=== PATIENT | male | born 1955 | race Caucasian/White ===

== ENCOUNTER 2016-08-11 09:45 | Outpatient (RCR) | payer MEDICARE, MEDICAID ==
[~2016-08-11 09:45] MED LIST: ABILIFY; ABILIFY 15MG TA15 MG PO; ABILIFY DISCMEL10 M1; ABILIFY30 MG PO; ACID REFLUX; ACYCLOVIR200 MG PO; ADIPEX-P37.5 MG PO; AMBIEN 10MG10 MG PO; AMBIEN10 MG PO; AMITRIPTYLINE H25 M1 PO; AMITRIPTYLINE25 MG PO; ANDRODERM2.5 MG/24 TD; ASPIRIN 32325 MG/TAB PO; ASTHMACORT; ATIVAN 0.50.5 MG/TAB PO; ATIVAN2 MG PO; BUDEPRION XL150 MG PO; CELEXA 20MG20 MG/TAB PO; CELEXA40 MG PO; CEPHALEXIN500 M1 PO; CIPRO 500MG TA500 MG PO; CLINDAMYCIN300 MG PO; CLOTRIMAZOLE1% TP; COLCHICINE0.6 MG PO; CYMBALTA; CYMBALTA60 M1 PO; DESYREL 100MG100 MG PO; DESYREL DIVIDO150 M1 PO; DOXYCYCLINE 10100 MG PO; EPA1000 MG PO; FASTIN30 MG PO; FENTANYL 100MCG TOP; FLOMAX 0.40.4 MG/CAP PO; FUROSEMIDE; GABAPENTIN600 MG PO; GLUCOPHAGE1000 MG PO; GRALISE600 MG PO; HTN; HYDROCHLOR50 MG PO; HYDROCODONE/APAP; HYDROCORTISON28.4 GM TP; K-DUR 2020 MEQ PO; LASIX 20MG TABL20 MG PO; LASIX 80MG TABL80 MG PO; LASIX20 MG PO; LEVAQUIN 5500 MG/TA1 PO; LEVEMIR FLEX100 U/ML SQ; LEVEMIR FLEXPEN SC; LEVEMIR FLEXPEN SQ; LEVEMIR SC; LORTAB 5/500 501 TAB PO; METFORMIN500 MG PO; MS CONTIN 115 MG/TAB PO; NEURONTIN100 MG/CAP PO; NEXIUM 40MG40 MG PO; NEXIUM40 MG PO; NITROSTAT0.4 MG/TAB SL; NORCO 325 MG-51 TAB PO; PERCOCET 325 MG1 TA2 PO; PHENTERMINE15 MG; POTASSIUM CL 220 MEQ PO; PREDNISONE20 MG PO; PRILOSEC 20MG20 MG PO; PRINIVIL10 MG PO; PROAIR HFA0.09 MG/AC IH; ROXICODONE 55 MG/TAB PO; ROXICODONE15 MG PO; SINGULAIR; SINGULAIR 110 MG/TAB PO; THEO-24 30300 MG/CAP PO; TRAZADONE HYDR100 MG PO; TYLENOL 325MG325 MG PO; UNABLE; VIBRANT; VICODIN 5/5001 UDTAB PO; VIIBRYD20 MG PO; VITAMIN D31000 I1 PO; WELLBUTRIN PO; WELLBUTRIN XL150 MG PO; ZAROXOLYN 2.52.5 MG PO; ZESTRIL 5MG5 MG PO; ZITHROMAX Z PA250 MG PO; ZOCOR 20MG20 MG PO; ZOCOR20 MG PO; ZYLOPRIM 300MG300 MG PO; [UNRECOGNIZED DRUG - REMARK]; [UNRECOGNIZED DRUG - REMARK]
[2017-02-23] MEDS ORDERED: TOPAMAX50 MG PO (17:46)
[2017-04-13] MEDS ORDERED: ADIPEX-P37.5 MG PO (13:20)
== END 2016-08-15 | disposition still patient (30) ==
LOC: WSPT
DX: M54.5 Low back pain (principal); G89.29 Other chronic pain
CPT/HCPCS: G8978-GP; G8979-GP

== ENCOUNTER 2016-08-28 10:09 | Emergency (ER) | payer MEDICARE, MEDICAID ==
[~2016-08-28] VITALS: Ht 185.4 cm; Wt 144.1 kg
[2016-08-28 10:11] VITALS: BP 135/71; PULSE 86; TEMP 97.6
[2016-08-28] MEDS ORDERED: NORCO 325 MG-51 TAB PO (11:50)
[2017-02-23] MEDS ORDERED: TOPAMAX50 MG PO (17:46)
[2017-04-13] MEDS ORDERED: ADIPEX-P37.5 MG PO (13:20)
== END 2016-08-28 12:03 | disposition home or self-care (01) ==
LOC: COL.ER 10:09
DX: S63.501A Unspecified sprain of right wrist, initial encounter (principal); S60.444A External constriction of right ring finger, initial encounter; W49.04XA Ring or other jewelry causing external constriction, initial encounter; X50.1XXA Overexertion from prolonged static or awkward postures, initial encounter; Z79.4 Long term (current) use of insulin; E11.22 Type 2 diabetes mellitus with diabetic chronic kidney disease; I12.9 Hypertensive chronic kidney disease with stage 1 through stage 4 chronic kidney disease, or unspecified chronic kidney disease; N18.9 Chronic kidney disease, unspecified

== ENCOUNTER 2016-09-06 09:45 | Outpatient (RCR) | payer MEDICARE, MEDICAID ==
[2017-02-23] MEDS ORDERED: TOPAMAX50 MG PO (17:46)
[2017-04-13] MEDS ORDERED: ADIPEX-P37.5 MG PO (13:20)
== END 2016-09-09 08:32 | disposition home or self-care (01) ==
LOC: WSPT 09:45
DX: M54.5 Low back pain (principal); G89.29 Other chronic pain; M79.604 Pain in right leg; M79.605 Pain in left leg
CPT/HCPCS: G8978-GP; G8979-GP; G8980-GP

== ENCOUNTER → 2016-09-29 | Outpatient (CLI) | payer MEDICARE, MEDICAID ==
[~2016-09-29] VITALS: Ht 185.4 cm; Wt 144.7 kg
[~2016-09-29] MED LIST changes: +AMITRIPTYLINE H10 M1 PO; +ATARAX50 MG PO; +DAZIDOX10 MG PO; +LEVEMIR100 U/ML SQ; +MIRALAX PA17 GM/Dose PO; +MIRALAX119G PO; +SENOKOT8.6 MG PO; +TOPAMAX50 MG PO
[2016-09-29 09:08] VITALS: BP 143/73; PULSE 60
[2016-09-29 09:32] VITALS: BP 143/73; PULSE 60
== END ==
LOC: LIGHT 09:05
DX: E88.81 Metabolic syndrome and other insulin resistance (principal); E11.9 Type 2 diabetes mellitus without complications; I10 Essential (primary) hypertension; E66.01 Morbid (severe) obesity due to excess calories; Z68.41 Body mass index [BMI] 40.0-44.9, adult

== ENCOUNTER 2016-11-01 08:30 | Outpatient (RCR) | payer MEDICARE, MEDICAID ==
[~2016-11-01 08:30] MED LIST changes: -AMITRIPTYLINE H10 M1 PO; -ATARAX50 MG PO; -DAZIDOX10 MG PO; -LEVEMIR100 U/ML SQ; -MIRALAX PA17 GM/Dose PO; -MIRALAX119G PO; -SENOKOT8.6 MG PO; -TOPAMAX50 MG PO
[2017-02-23] MEDS ORDERED: TOPAMAX50 MG PO (17:46)
[2017-04-13] MEDS ORDERED: ADIPEX-P37.5 MG PO (13:20)
== END 2016-11-18 10:33 | disposition home or self-care (01) ==
LOC: WSPT 08:30
DX: M75.112 Incomplete rotator cuff tear or rupture of left shoulder, not specified as traumatic (principal); M75.111 Incomplete rotator cuff tear or rupture of right shoulder, not specified as traumatic
CPT/HCPCS: G8987-GP; G8988-GP; G8989-GP

== ENCOUNTER → 2016-11-03 | Outpatient (CLI) | payer MEDICARE, MEDICAID ==
[~2016-11-03] VITALS: Ht 185.4 cm; Wt 142.0 kg
[~2016-11-03] MED LIST changes: +AMITRIPTYLINE H10 M1 PO; +ATARAX50 MG PO; +DAZIDOX10 MG PO; +LEVEMIR100 U/ML SQ; +MIRALAX PA17 GM/Dose PO; +MIRALAX119G PO; +SENOKOT8.6 MG PO; +TOPAMAX50 MG PO
[2016-11-03 09:16] VITALS: BP 116/62; PULSE 68
== END ==
LOC: LIGHT 09:15
DX: E88.81 Metabolic syndrome and other insulin resistance (principal); E11.9 Type 2 diabetes mellitus without complications; E66.01 Morbid (severe) obesity due to excess calories; Z68.41 Body mass index [BMI] 40.0-44.9, adult; I10 Essential (primary) hypertension; Z98.84 Bariatric surgery status

== ENCOUNTER 2016-12-22 12:38 | Inpatient (IN) | payer MEDICARE, MEDICAID ==
[~2016-12-22] VITALS: Ht 182.9 cm; Wt 141.0 kg
[~2016-12-22 12:38] MED LIST changes: -AMITRIPTYLINE H10 M1 PO; -ATARAX50 MG PO; -DAZIDOX10 MG PO; -LEVEMIR100 U/ML SQ; -MIRALAX PA17 GM/Dose PO; -MIRALAX119G PO; -SENOKOT8.6 MG PO; -TOPAMAX50 MG PO
[2016-12-22] MEDS ORDERED: TOPAMAX50 MG PO (14:15)
[2017-01-23] MEDS ORDERED: LEVEMIR100 U/ML SQ (13:38)
[2017-01-23] MEDS ORDERED: ROXICODONE15 MG PO (13:41)
[2017-02-13] VITALS (11 sets, daily range): BP systolic 104–148; BP diastolic 47–79; PULSE 51–73; TEMP 97.6–98.3
[2017-02-13] MEDS ORDERED: MIRALAX PA17 GM/Dose PO (06:17)
[2017-02-13] MEDS ORDERED: ATARAX50 MG PO (06:28)
[2017-02-13] MEDS ORDERED: ABILIFY30 MG PO (06:38)
[2017-02-13] MEDS ORDERED: ABILIFY 15MG TA15 MG PO (06:38)
[2017-02-14] VITALS (7 sets, daily range): BP systolic 113–166; BP diastolic 57–64; PULSE 20–82; TEMP 97.5–99.3
[2017-02-14 06:41] LABS: HEMATOCRIT 34.3 % (42.0-52.0); HEMOGLOBIN 11.1 g/dl (13.5-18.0)
[2017-02-15 03:51] VITALS: BP 146/66; PULSE 88; TEMP 98.2
[2017-02-15 06:55] LABS: HEMATOCRIT 34.2 % (42.0-52.0); HEMOGLOBIN 11.5 g/dl (13.5-18.0)
[2017-02-15 07:41] VITALS: BP 158/69; PULSE 84; TEMP 98.3
[2017-02-15 15:59] VITALS: BP 150/62; PULSE 86; TEMP 98.2
[2017-02-15 20:00] VITALS: BP 99/85; PULSE 110; TEMP 98.4
[2017-02-16 00:51] VITALS: BP 162/82; PULSE 87; TEMP 98.2
[2017-02-16 05:07] VITALS: BP 125/74; PULSE 88; TEMP 98.9
[2017-02-16 07:51] VITALS: BP 152/72; PULSE 93; TEMP 97.5
[2017-02-16 12:01] VITALS: BP 143/60; PULSE 76; TEMP 98.6
[2017-02-23] MEDS ORDERED: TOPAMAX50 MG PO (17:46)
[2017-04-13] MEDS ORDERED: ADIPEX-P37.5 MG PO (13:20)
== END 2017-02-16 14:30 | disposition home or self-care (01) | DRG 470 ==
LOC: JCC 02-13 05:04
PROVIDERS: Orthopaedic Surgery
PROC: 0SRC0J9 Replacement of Right Knee Joint with Synthetic Substitute, Cemented, Open Approach (ICD-10-PCS; principal; 2017-02-13 07:30)
DX: M17.11 Unilateral primary osteoarthritis, right knee (principal); I10 Essential (primary) hypertension; E11.42 Type 2 diabetes mellitus with diabetic polyneuropathy; Z79.4 Long term (current) use of insulin; J45.909 Unspecified asthma, uncomplicated; Z87.891 Personal history of nicotine dependence
CPT/HCPCS: A9284; C1713; C1776; J0171; J0690; J1100; J1815; J2250; J2270; J2274; J2405; J2704; J2765; J3010; J7030; J7120

== ENCOUNTER → 2016-12-22 | Outpatient (CLI) | payer MEDICARE, MEDICAID ==
[~2016-12-22] VITALS: Ht 185.4 cm; Wt 145.4 kg
[2016-12-22 09:21] VITALS: BP 130/65; PULSE 74
== END ==
LOC: LIGHT
DX: E88.81 Metabolic syndrome and other insulin resistance (principal); E11.9 Type 2 diabetes mellitus without complications; E66.01 Morbid (severe) obesity due to excess calories; Z68.41 Body mass index [BMI] 40.0-44.9, adult; Z71.3 Dietary counseling and surveillance; I10 Essential (primary) hypertension

== ENCOUNTER 2017-02-10 07:54 | Outpatient (RCR) | payer MEDICARE, MEDICAID ==
[~2017-02-10 07:54] MED LIST changes: +LEVEMIR100 U/ML SQ; +TOPAMAX50 MG PO
[2017-02-23] MEDS ORDERED: TOPAMAX50 MG PO (17:46)
[2017-04-13] MEDS ORDERED: ADIPEX-P37.5 MG PO (13:20)
== END 2017-02-10 12:14 | disposition still patient (30) ==
LOC: WSPT 07:54
DX: Z01.818 Encounter for other preprocedural examination (principal); M25.861 Other specified joint disorders, right knee
CPT/HCPCS: G8978-GP; G8979-GP; G8980-GP

== ENCOUNTER 2017-02-19 08:07 | Emergency (ER) | payer MEDICARE, MEDICAID ==
[~2017-02-19] VITALS: Ht 182.9 cm; Wt 143.2 kg
[~2017-02-19 08:07] MED LIST changes: +ATARAX50 MG PO; +MIRALAX PA17 GM/Dose PO
[2017-02-19 08:13] VITALS: BP 116/58; TEMP 98.5
[2017-02-19 09:44] VITALS: PULSE 81
[2017-02-23] MEDS ORDERED: TOPAMAX50 MG PO (17:46)
[2017-04-13] MEDS ORDERED: ADIPEX-P37.5 MG PO (13:20)
== END 2017-02-19 09:44 | disposition home or self-care (01) ==
LOC: COL.ER 08:07
DX: Z48.01 Encounter for change or removal of surgical wound dressing (principal); Z96.651 Presence of right artificial knee joint; E11.22 Type 2 diabetes mellitus with diabetic chronic kidney disease; I12.9 Hypertensive chronic kidney disease with stage 1 through stage 4 chronic kidney disease, or unspecified chronic kidney disease; N18.9 Chronic kidney disease, unspecified; Z79.4 Long term (current) use of insulin
CPT/HCPCS: J1170

== ENCOUNTER 2017-04-03 17:38 | Emergency (ER) | payer MEDICARE, MEDICAID ==
[~2017-04-03] VITALS: Ht 182.9 cm; Wt 145.9 kg
[2017-04-03 17:40] VITALS: TEMP 98.5
[2017-04-03] MEDS ORDERED: DAZIDOX10 MG PO (18:03)
[2017-04-03] MEDS ORDERED: AMITRIPTYLINE H10 M1 PO (18:16)
[2017-04-03 18:36] LABS: BASO # 0.1 (0.0-0.2); BASO % 1.7 % (0.0-2.0); EOS # 0.3 (0.0-0.7); EOS % 3.9 % (0-4.0); GRAN # 4.3 (1.4-6.5); GRAN % 52.6 % (42.2-75.2); LYMPH # 2.6 (1.2-3.4); LYMPH % 31.1 % (20.0-51.0); MEAN CELL VOLUME 92 fl (80.0-100.0); MEAN CORPUSCULAR HGB CONC 32 g/dl (33.0-37.0); MEAN PLATELET VOLUME 8.8 fl (7.4-10.4); MONO # 0.8 (0.1-0.6); MONO % 10.2 % (1.7-9.3); PLATELET COUNT 352 K/mm3 (130-400); RED BLOOD COUNT 3.89 M/mm3 (4.20-5.60); REDCELL DISTRIBUTION WIDTH-CV 13.5 % (11.5-14.5); WHITE BLOOD COUNT 8.2 K/mm3 (4.8-10.8)
[2017-04-03 18:37] LABS: HEMATOCRIT 35.9 % (42.0-52.0); HEMOGLOBIN 11.5 g/dl (13.5-18.0); MEAN CORPUSCULAR HEMOGLOBIN 30 pg (27.0-31.0)
[2017-04-03 18:50] LABS: ADJUSTED CALCIUM 9.2 mg/dL (8.4-10.2); ALBUMIN 3.9 gm/dL (3.5-5.0); BILIRUBIN,TOTAL 0.6 mg/dL (0.0-1.0); CALCIUM 9.1 mg/dL (8.4-10.2); CREATININE, serum 1.04 mg/dL (0.66-1.25); POTASSIUM 3.3 mmol/L (3.4-5.0)
[2017-04-03 20:12] LABS: PH 6 (5-8); SQUAMOUS EPITHELIAL None Seen /hpf; URINE APPEARANCE Clear; URINE BACTERIA None Seen /hpf; URINE BILIRUBIN Negative (NEGATIVE); URINE BLOOD Negative (NEGATIVE); URINE COLOR Straw; URINE GLUCOSE Negative (NEGATIVE); URINE KETONE Negative (NEGATIVE); URINE RBC 0-2 /hpf; URINE UROBILINOGEN Negative (NEGATIVE); URINE WBC 0-2 /hpf
[2017-04-03] MEDS ORDERED: SENOKOT8.6 MG PO (21:04)
[2017-04-03] MEDS ORDERED: MIRALAX119G PO (21:04)
[2017-04-03 21:10] VITALS: BP 149/69; PULSE 70
[2017-04-13] MEDS ORDERED: ADIPEX-P37.5 MG PO (13:20)
== END 2017-04-03 21:11 | disposition home or self-care (01) ==
LOC: COL.ER 17:38
PROVIDERS: Emergency Medicine
DX: R10.31 Right lower quadrant pain (principal); E11.9 Type 2 diabetes mellitus without complications; K21.9 Gastro-esophageal reflux disease without esophagitis; Z90.49 Acquired absence of other specified parts of digestive tract; Z98.890 Other specified postprocedural states; Z98.84 Bariatric surgery status; Z79.82 Long term (current) use of aspirin
CPT/HCPCS: J2270; Q9967

== ENCOUNTER → 2017-04-13 | Outpatient (CLI) | payer MEDICARE, MEDICAID ==
[~2017-04-13] VITALS: Ht 182.9 cm; Wt 145.8 kg
[~2017-04-13] MED LIST changes: +AMITRIPTYLINE H10 M1 PO; +DAZIDOX10 MG PO; +MIRALAX119G PO; +SENOKOT8.6 MG PO
[2017-04-13 13:08] VITALS: BP 106/70; PULSE 68
== END ==
LOC: LIGHT 01-26 11:53
DX: E88.81 Metabolic syndrome and other insulin resistance (principal); E11.9 Type 2 diabetes mellitus without complications; E66.01 Morbid (severe) obesity due to excess calories; Z68.41 Body mass index [BMI] 40.0-44.9, adult; Z71.3 Dietary counseling and surveillance; I10 Essential (primary) hypertension

== ENCOUNTER 2017-04-17 09:45 | Outpatient (RCR) | payer MEDICARE, MEDICAID | END 2017-04-19 08:17 | LOC: WSPT 09:45 | DX: M25.561 Pain in right knee (principal); Z96.651 Presence of right artificial knee joint | CPT/HCPCS: G8978-GP; G8979-GP; G8980-GP ==

== ENCOUNTER → 2017-05-18 | Outpatient (CLI) | payer MEDICARE, MEDICAID ==
[~2017-05-18] VITALS: Ht 182.9 cm; Wt 139.3 kg
[2017-05-18 08:46] VITALS: BP 134/66; PULSE 88
== END ==
LOC: LIGHT 08:40
DX: E88.81 Metabolic syndrome and other insulin resistance (principal); E11.9 Type 2 diabetes mellitus without complications; E66.01 Morbid (severe) obesity due to excess calories; Z68.41 Body mass index [BMI] 40.0-44.9, adult; Z71.3 Dietary counseling and surveillance; I10 Essential (primary) hypertension

== ENCOUNTER → 2017-06-22 | Outpatient (CLI) | payer MEDICARE, MEDICAID ==
[~2017-06-22] VITALS: Ht 182.9 cm; Wt 140.6 kg
[2017-06-22 10:16] VITALS: BP 110/62; PULSE 64
== END ==
LOC: LIGHT 10:08
DX: E88.81 Metabolic syndrome and other insulin resistance (principal); E11.9 Type 2 diabetes mellitus without complications; E66.01 Morbid (severe) obesity due to excess calories; Z68.41 Body mass index [BMI] 40.0-44.9, adult; Z71.3 Dietary counseling and surveillance; I10 Essential (primary) hypertension

== ENCOUNTER → 2017-08-17 | Outpatient (CLI) | payer MEDICARE, MEDICAID ==
[~2017-08-17] VITALS: Ht 182.9 cm; Wt 141.5 kg
[2017-08-17 09:05] VITALS: BP 120/70; PULSE 60
== END ==
LOC: LIGHT 08:57
DX: E88.81 Metabolic syndrome and other insulin resistance (principal); E11.9 Type 2 diabetes mellitus without complications; E66.01 Morbid (severe) obesity due to excess calories; Z68.41 Body mass index [BMI] 40.0-44.9, adult; Z71.3 Dietary counseling and surveillance; I10 Essential (primary) hypertension
CPT/HCPCS: G0463

== ENCOUNTER 2017-08-28 07:59 | Outpatient (CLI) | payer MEDICARE, MEDICAID ==
[~2017-08-28] VITALS: Ht 182.9 cm; Wt 137.6 kg
[2017-08-28 08:34] VITALS: BP 124/81; PULSE 76
[2017-08-28 09:45] VITALS: BP 128/72; PULSE 62
[2017-08-28 09:55] VITALS: BP 128/72; PULSE 66
[2017-08-28 10:10] VITALS: BP 116/69; PULSE 72
[2017-08-28 10:25] VITALS: BP 108/58; PULSE 97
[2017-08-28 10:40] VITALS: BP 115/67; PULSE 98; TEMP 96.7
== END 2017-08-28 11:08 | disposition home or self-care (01) ==
LOC: COL.RAD 07:59
DX: M47.817 Spondylosis without myelopathy or radiculopathy, lumbosacral region (principal); M48.07 Spinal stenosis, lumbosacral region; Z98.890 Other specified postprocedural states
CPT/HCPCS: Q9965

== ENCOUNTER → 2017-10-19 | Outpatient (CLI) | payer MEDICARE, MEDICAID ==
[~2017-10-19] VITALS: Ht 182.9 cm; Wt 143.8 kg
[~2017-10-19] MED LIST changes: +FLEXERIL 1010 MG/TAB PO
[2017-10-19 09:17] VITALS: BP 118/76; PULSE 68
== END ==
LOC: LIGHT 09:03
DX: E88.81 Metabolic syndrome and other insulin resistance (principal); E11.9 Type 2 diabetes mellitus without complications; E66.01 Morbid (severe) obesity due to excess calories; Z68.41 Body mass index [BMI] 40.0-44.9, adult; Z71.3 Dietary counseling and surveillance; I10 Essential (primary) hypertension
CPT/HCPCS: G0463

== ENCOUNTER → 2017-12-21 | Outpatient (CLI) | payer MEDICARE, MEDICAID ==
[~2017-12-21] VITALS: Ht 182.9 cm; Wt 143.3 kg
[~2017-12-21] MED LIST changes: +MELATONIN5 M1 SL
[2017-12-21 09:31] VITALS: BP 112/70; PULSE 68
[2017-12-21 09:38] VITALS: BP 112/70; PULSE 68
== END ==
LOC: LIGHT 09:08
DX: E88.81 Metabolic syndrome and other insulin resistance (principal); E11.9 Type 2 diabetes mellitus without complications; E66.01 Morbid (severe) obesity due to excess calories; Z68.41 Body mass index [BMI] 40.0-44.9, adult; Z71.3 Dietary counseling and surveillance; I10 Essential (primary) hypertension
CPT/HCPCS: G0463

== ENCOUNTER 2018-01-22 13:00 | Outpatient (RCR) | payer OTHER, MEDICAID | END 2018-02-05 08:27 | disposition home or self-care (01) | LOC: WSPT 13:00 | DX: M75.02 Adhesive capsulitis of left shoulder (principal); M75.42 Impingement syndrome of left shoulder | CPT/HCPCS: G8984-GP; G8985-GP ==

== ENCOUNTER → 2018-01-25 | Outpatient (CLI) | payer OTHER, MEDICAID ==
[~2018-01-25] VITALS: Ht 182.9 cm; Wt 142.4 kg
[2018-01-25 09:54] VITALS: BP 106/78; PULSE 68
== END ==
LOC: LIGHT 09:40
DX: E88.81 Metabolic syndrome and other insulin resistance (principal); E11.9 Type 2 diabetes mellitus without complications; E66.01 Morbid (severe) obesity due to excess calories; Z68.41 Body mass index [BMI] 40.0-44.9, adult; Z71.3 Dietary counseling and surveillance; I10 Essential (primary) hypertension
CPT/HCPCS: G0463

== ENCOUNTER → 2018-03-08 | Outpatient (CLI) | payer MEDICAID, MEDICARE ==
[~2018-03-08] VITALS: Ht 182.9 cm; Wt 145.1 kg
[~2018-03-08] MED LIST changes: +LUNESTA2 MG PO
[2018-03-08 09:24] VITALS: BP 124/72; PULSE 80
== END ==
LOC: LIGHT 08:54
DX: E88.81 Metabolic syndrome and other insulin resistance (principal); E11.9 Type 2 diabetes mellitus without complications; I10 Essential (primary) hypertension; E66.01 Morbid (severe) obesity due to excess calories; Z68.41 Body mass index [BMI] 40.0-44.9, adult; Z71.3 Dietary counseling and surveillance
CPT/HCPCS: G0463

== ENCOUNTER 2018-05-03 16:45 | Emergency (ER) | payer MEDICARE, MEDICAID ==
[~2018-05-03] VITALS: Ht 182.9 cm; Wt 143.2 kg
[2018-05-03 16:49] VITALS: TEMP 97.9
[2018-05-03 19:09] LABS: BASO # 0.1 (0.0-0.2); BASO % 1.3 % (0.0-2.0); EOS # 0.2 (0.0-0.7); EOS % 2.5 % (0-4.0); GRAN # 4.3 (1.4-6.5); GRAN % 59.4 % (42.2-75.2); LYMPH % 27.3 % (20.0-51.0); MEAN CELL VOLUME 89 fl (80.0-100.0); MEAN CORPUSCULAR HEMOGLOBIN 29 pg (27.0-31.0); MEAN CORPUSCULAR HGB CONC 33 g/dl (33.0-37.0); MEAN PLATELET VOLUME 8.6 fl (7.4-10.4); MONO # 0.7 (0.1-0.6); MONO % 9.2 % (1.7-9.3); PLATELET COUNT 359 K/mm3 (130-400); RED BLOOD COUNT 3.74 M/mm3 (4.20-5.60); REDCELL DISTRIBUTION WIDTH-CV 13.7 % (11.5-14.5)
[2018-05-03 19:14] LABS: HEMATOCRIT 33.1 % (42.0-52.0)
[2018-05-03 19:15] LABS: ALBUMIN 3.7 gm/dL (3.5-5.0); BILIRUBIN,TOTAL 0.2 mg/dL (0.0-1.0); C-REACTIVE PROTEIN 4.5 mg/dL (0.0-0.9); CALCIUM 8.6 mg/dL (8.4-10.2); CREATININE, serum 1.14 mg/dL (0.66-1.25); POTASSIUM 3.5 mmol/L (3.4-5.0); TOTAL PROTEIN 7.9 gm/dL (6.4-8.2)
[2018-05-03] MEDS ORDERED: CIPRO 500MG TA500 MG PO (20:11)
[2018-05-03] MEDS ORDERED: CLEOCIN HCL300 MG PO (20:11)
[2018-05-03 20:24] VITALS: BP 117/77; PULSE 60
== END 2018-05-03 20:24 | disposition home or self-care (01) ==
LOC: COL.ER 16:45
PROVIDERS: Physician Assistant
DX: L03.116 Cellulitis of left lower limb (principal); L03.115 Cellulitis of right lower limb; E11.9 Type 2 diabetes mellitus without complications; Z98.890 Other specified postprocedural states; Z79.82 Long term (current) use of aspirin

== ENCOUNTER → 2018-05-10 | Outpatient (CLI) | payer MEDICAID ==
[~2018-05-10] VITALS: Ht 182.9 cm; Wt 137.0 kg
[~2018-05-10] MED LIST changes: +CLEOCIN HCL300 MG PO; +PLETAL50 MG PO; +PROSCAR 5MG5 MG PO
[2018-05-10 08:51] VITALS: BP 130/70; PULSE 80
== END ==
LOC: LIGHT 08:41
DX: E88.81 Metabolic syndrome and other insulin resistance (principal); I10 Essential (primary) hypertension; E11.9 Type 2 diabetes mellitus without complications; E66.01 Morbid (severe) obesity due to excess calories; Z68.41 Body mass index [BMI] 40.0-44.9, adult; Z71.3 Dietary counseling and surveillance
CPT/HCPCS: G0463

== ENCOUNTER 2018-06-10 01:32 | Emergency (ER) | payer MEDICARE, MEDICAID ==
[2018-06-10 02:09] LABS: BASO # 0.1 (0.0-0.2); BASO % 0.8 % (0.0-2.0); EOS # 0.2 (0.0-0.7); EOS % 3.3 % (0-4.0); GRAN # 4.2 (1.4-6.5); GRAN % 57.7 % (42.2-75.2); HEMATOCRIT 37.2 % (42.0-52.0); HEMOGLOBIN 12.1 g/dl (13.5-18.0); LYMPH % 27.7 % (20.0-51.0); MEAN CELL VOLUME 91 fl (80.0-100.0); MEAN CORPUSCULAR HEMOGLOBIN 30 pg (27.0-31.0); MEAN CORPUSCULAR HGB CONC 33 g/dl (33.0-37.0); MEAN PLATELET VOLUME 8.8 fl (7.4-10.4); MONO # 0.7 (0.1-0.6); MONO % 10.2 % (1.7-9.3); PLATELET COUNT 282 K/mm3 (130-400); RED BLOOD COUNT 4.09 M/mm3 (4.20-5.60); REDCELL DISTRIBUTION WIDTH-CV 14.1 % (11.5-14.5)
[2018-06-10 02:19] LABS: ALANINE AMINOTRANSFERASE 22 U/L (21-72); ALKALINE PHOSPHATASE 169 U/L (50-136); ANION GAP 6 mmol/L (7-16); AST,SGOT 21 U/L (15-37); BILIRUBIN,TOTAL 0.4 mg/dL (0.0-1.0); BLOOD UREA NITROGEN 17 mg/dL (9-20); CALCIUM 8.8 mg/dL (8.4-10.2); CARBON DIOXIDE 32 mmol/L (22-30); CHLORIDE 103 mmol/L (98-107); CREATININE, serum 1.33 mg/dL (0.66-1.25); GLUCOSE 115 mg/dL (74-106); POTASSIUM 3.6 mmol/L (3.4-5.0); SODIUM 140 mmol/L (137-145); TOTAL PROTEIN 8.3 gm/dL (6.4-8.2)
[2018-06-10 02:31] LABS: TROPONIN-I < 0.012 ng/mL (0.000-0.034)
[2018-06-10] MEDS ORDERED: FLEXERIL5 MG PO (03:01)
[2018-06-10 05:25] VITALS: BP 114/64; PULSE 63
== END 2018-06-10 05:27 | disposition home or self-care (01) ==
LOC: COL.ER 01:32
PROVIDERS: Emergency Medicine
DX: M54.5 Low back pain (principal); M54.2 Cervicalgia; E11.9 Type 2 diabetes mellitus without complications; E78.5 Hyperlipidemia, unspecified; K21.9 Gastro-esophageal reflux disease without esophagitis; I10 Essential (primary) hypertension; Z90.49 Acquired absence of other specified parts of digestive tract; Z98.890 Other specified postprocedural states; Z98.84 Bariatric surgery status; Z79.82 Long term (current) use of aspirin; Z87.891 Personal history of nicotine dependence; W18.39XA Other fall on same level, initial encounter

== ENCOUNTER 2018-07-05 08:03 | Inpatient (IN) | payer MEDICARE, MEDICAID ==
[~2018-07-05] VITALS: Ht 185.4 cm; Wt 138.4 kg
[~2018-07-05 08:03] MED LIST changes: +FLEXERIL5 MG PO
[2018-07-05 08:55] LABS: BASO # 0.1 (0.0-0.2); BASO % 0.6 % (0.0-2.0); EOS # 0.2 (0.0-0.7); EOS % 1.3 % (0-4.0); GRAN # 11.6 (1.4-6.5); GRAN % 81.2 % (42.2-75.2); HEMOGLOBIN 11.7 g/dl (13.5-18.0); LYMPH # 1.7 (1.2-3.4); LYMPH % 12.1 % (20.0-51.0); MEAN CELL VOLUME 90 fl (80.0-100.0); MEAN CORPUSCULAR HEMOGLOBIN 29 pg (27.0-31.0); MEAN CORPUSCULAR HGB CONC 32 g/dl (33.0-37.0); MEAN PLATELET VOLUME 9.3 fl (7.4-10.4); MONO # 0.6 (0.1-0.6); MONO % 4.4 % (1.7-9.3); PLATELET COUNT 261 K/mm3 (130-400); RED BLOOD COUNT 4.01 M/mm3 (4.20-5.60); REDCELL DISTRIBUTION WIDTH-CV 14.7 % (11.5-14.5)
[2018-07-05 08:59] LABS: HEMATOCRIT 36.2 % (42.0-52.0)
[2018-07-05 09:07] LABS: ALBUMIN 3.8 gm/dL (3.5-5.0); BILIRUBIN,TOTAL 0.6 mg/dL (0.0-1.0); CALCIUM 8.8 mg/dL (8.4-10.2); CREATININE, serum 1.35 mg/dL (0.66-1.25); POTASSIUM 3.4 mmol/L (3.4-5.0); TOTAL PROTEIN 7.9 gm/dL (6.4-8.2)
[2018-07-05] MEDS ORDERED: ZANTAC 7575 MG PO (09:49)
[2018-07-05] MEDS ORDERED: LUNESTA 1MG TAB1 MG PO (09:53)
[2018-07-05 11:03] LABS: COLLECTION METHOD CLEAN CATCH
[2018-07-05 11:14] LABS: PH 6 (5-8); SQUAMOUS EPITHELIAL 0-2 /hpf; URINE APPEARANCE Clear; URINE BACTERIA None Seen /hpf; URINE BILIRUBIN Negative (NEGATIVE); URINE BLOOD Negative (NEGATIVE); URINE COLOR Yellow; URINE GLUCOSE Negative (NEGATIVE); URINE KETONE Negative (NEGATIVE); URINE LEUKOCYTE ESTERASE Negative (NEGATIVE); URINE NITRATE Negative (NEGATIVE); URINE PROTEIN(semi-quant) Negative (NEGATIVE); URINE RBC None Seen /hpf; URINE UROBILINOGEN Negative (NEGATIVE)
[2018-07-05] MEDS ORDERED: PROTONIX 40MG T40 MG PO (13:21)
[2018-07-05 13:36] VITALS: BP 103/62; PULSE 75; TEMP 97.9
[2018-07-05 15:32] VITALS: BP 97/52; PULSE 71; TEMP 97.5
[2018-07-05 15:34] VITALS: BP 100/53; PULSE 78
[2018-07-05 15:35] VITALS: BP 88/39; PULSE 85
[2018-07-05 19:56] VITALS: BP 97/44; PULSE 61; TEMP 97.8
[2018-07-05 23:59] VITALS: BP 111/52; PULSE 57
[2018-07-06] VITALS (8 sets, daily range): BP systolic 103–127; BP diastolic 57–68; PULSE 52–66; TEMP 97.5–98.2
[2018-07-06 06:23] LABS: BASO # 0.1 (0.0-0.2); BASO % 0.8 % (0.0-2.0); EOS # 0.3 (0.0-0.7); EOS % 3.1 % (0-4.0); GRAN % 71.2 % (42.2-75.2); HEMOGLOBIN 10.5 g/dl (13.5-18.0); LYMPH # 1.4 (1.2-3.4); LYMPH % 16.9 % (20.0-51.0); MEAN CELL VOLUME 91 fl (80.0-100.0); MEAN CORPUSCULAR HEMOGLOBIN 29 pg (27.0-31.0); MEAN CORPUSCULAR HGB CONC 32 g/dl (33.0-37.0); MEAN PLATELET VOLUME 9.2 fl (7.4-10.4); MONO # 0.6 (0.1-0.6); MONO % 7.5 % (1.7-9.3); PLATELET COUNT 244 K/mm3 (130-400); RED BLOOD COUNT 3.62 M/mm3 (4.20-5.60); REDCELL DISTRIBUTION WIDTH-CV 14.9 % (11.5-14.5)
[2018-07-06 06:32] LABS: HEMATOCRIT 32.8 % (42.0-52.0)
[2018-07-06 06:36] LABS: CALCIUM 8.6 mg/dL (8.4-10.2); CREATININE, serum 1.08 mg/dL (0.66-1.25); MAGNESIUM 2.2 mg/dL (1.6-2.3); POTASSIUM 3.6 mmol/L (3.4-5.0)
[2018-07-06 06:46] LABS: THEOPHYLLINE 4.2 ug/mL (10.0-20.0)
[2018-07-06] MEDS ORDERED: DOXYCYCLINE 10100 MG PO (16:09)
== END 2018-07-06 17:21 | disposition home or self-care (01) | DRG 865 ==
LOC: COL.ER 08:03 → MEDICAL 09:30
PROVIDERS: Family Medicine; Internal Medicine; Internal Medicine Gastroenterology
PROC: 0DB38ZX Excision of Lower Esophagus, Via Natural or Artificial Opening Endoscopic, Diagnostic (ICD-10-PCS; principal; 2018-07-06 07:45)
DX: B33.8 Other specified viral diseases (principal); J18.9 Pneumonia, unspecified organism; I95.1 Orthostatic hypotension; R53.1 Weakness; G47.33 Obstructive sleep apnea (adult) (pediatric); K21.9 Gastro-esophageal reflux disease without esophagitis; R50.81 Fever presenting with conditions classified elsewhere; R05 Cough; J45.909 Unspecified asthma, uncomplicated; E11.22 Type 2 diabetes mellitus with diabetic chronic kidney disease; N18.9 Chronic kidney disease, unspecified; M54.9 Dorsalgia, unspecified; B19.20 Unspecified viral hepatitis C without hepatic coma; I73.9 Peripheral vascular disease, unspecified; F20.9 Schizophrenia, unspecified; F32.9 Major depressive disorder, single episode, unspecified; G47.00 Insomnia, unspecified; K22.70 Barrett's esophagus without dysplasia
CPT/HCPCS: 99223-AI; 99239; G8978-GP; G8979-GP; G8987-GO; G8988-GO; J1644; J2704; J7030

== ENCOUNTER 2018-08-09 08:00 | Outpatient (RCR) | payer MEDICARE, MEDICAID ==
[~2018-08-09 08:00] MED LIST changes: +LUNESTA 1MG TAB1 MG PO; +PROTONIX 40MG T40 MG PO; +ZANTAC 7575 MG PO
[2018-09-24] MEDS ORDERED: COMBIRESP IH (07:33)
[2018-09-24] MEDS ORDERED: OXYGEN MC (07:35)
[2018-09-24] MEDS ORDERED: ZESTRIL 5MG5 MG PO (07:35)
[2018-09-24] MEDS ORDERED: BIPAP (07:36)
[2018-09-24] MEDS ORDERED: NEXIUM 40MG40 MG PO (07:40)
[2018-09-24] MEDS ORDERED: LASIX 20MG TABL20 MG PO (07:42)
[2018-09-24] MEDS ORDERED: AMBIEN 10MG10 MG PO (07:43)
[2018-09-24] MEDS ORDERED: ROXICODONE15 MG PO (07:49)
[2018-09-27] MEDS ORDERED: TOPAMAX50 MG PO (09:46)
== END 2018-09-30 | disposition home or self-care (01) ==
LOC: MKS.ESL.PT
DX: M54.5 Low back pain (principal); Z91.81 History of falling; Z98.890 Other specified postprocedural states; Z98.1 Arthrodesis status
CPT/HCPCS: G8978-GP; G8979-GP

== ENCOUNTER 2018-09-24 06:40 | Day surgery (SDC) | payer MEDICARE, MEDICAID ==
[~2018-09-24] VITALS: Ht 185.4 cm; Wt 143.4 kg
[2018-09-24 07:15] VITALS: BP 118/60; PULSE 65; TEMP 98.3
--- NOTE | 2018-09-24 07:25 | NUR ---
TO RM AT 0650- CALL LIGHT IN REACH AT BEDSIDE.
[2018-09-24] MEDS ORDERED: COMBIRESP IH (07:33)
[2018-09-24] MEDS ORDERED: OXYGEN MC (07:35)
[2018-09-24] MEDS ORDERED: ZESTRIL 5MG5 MG PO (07:35)
[2018-09-24] MEDS ORDERED: BIPAP (07:36)
[2018-09-24] MEDS ORDERED: NEXIUM 40MG40 MG PO (07:40)
[2018-09-24] MEDS ORDERED: LASIX 20MG TABL20 MG PO (07:42)
[2018-09-24] MEDS ORDERED: AMBIEN 10MG10 MG PO (07:43)
[2018-09-24] MEDS ORDERED: ROXICODONE15 MG PO (07:49)
[2018-09-24 09:15] VITALS: BP 116/48; PULSE 60
--- NOTE | 2018-09-24 09:15 | NUR ---
Pt returns from endo procedure. Pt drowsy, but answers all questions appropriately. Monitors on and alarms set. This RN to continue post-op care. Pt's remains in room. Pt denies pain or nausea. Pt requests diet soda, muffin, and applesauce. Call light within reach.
--- NOTE | 2018-09-24 09:25 | NUR ---
Pt taking food and drink well. Pt voices no complaints.
[2018-09-24 09:34] VITALS: BP 112/57; PULSE 60
[2018-09-24 09:45] VITALS: BP 116/56; PULSE 56
--- NOTE | 2018-09-24 10:00 | NUR ---
Pt ambulates to bathroom with this RN assist without complications.
[2018-09-24 10:10] VITALS: BP 134/69; PULSE 62
--- NOTE | 2018-09-24 10:10 | NUR ---
Discharge instructions reviewed with patient and . All questions answered to their satisfaction. Handed to them are these instructions as well as procedural information and a discharge packet.
--- NOTE | 2018-09-24 10:20 | NUR ---
Pt transferred out of hospital via wheelchair and raheel Kohli, to private vehicle driven by pt's .
[2018-09-24 17:08] VITALS: BP 130/77; PULSE 57
== END 2018-09-24 10:20 | disposition home or self-care (01) ==
LOC: SDCO 06:40
DX: R04.2 Hemoptysis (principal); J98.4 Other disorders of lung; G47.33 Obstructive sleep apnea (adult) (pediatric); J32.9 Chronic sinusitis, unspecified; I27.81 Cor pulmonale (chronic); Z87.891 Personal history of nicotine dependence; E66.9 Obesity, unspecified; Z68.41 Body mass index [BMI] 40.0-44.9, adult; Z79.899 Other long term (current) drug therapy; Z79.82 Long term (current) use of aspirin; I25.10 Atherosclerotic heart disease of native coronary artery without angina pectoris; F41.9 Anxiety disorder, unspecified; F32.9 Major depressive disorder, single episode, unspecified; F25.9 Schizoaffective disorder, unspecified; M10.9 Gout, unspecified; E11.42 Type 2 diabetes mellitus with diabetic polyneuropathy; E11.22 Type 2 diabetes mellitus with diabetic chronic kidney disease; I12.9 Hypertensive chronic kidney disease with stage 1 through stage 4 chronic kidney disease, or unspecified chronic kidney disease; N18.9 Chronic kidney disease, unspecified; I73.9 Peripheral vascular disease, unspecified; Z95.820 Peripheral vascular angioplasty status with implants and grafts; E78.5 Hyperlipidemia, unspecified; J45.909 Unspecified asthma, uncomplicated
CPT/HCPCS: J2250; J2704; J7120

== ENCOUNTER → 2018-09-27 | Outpatient (CLI) | payer MEDICARE, MEDICAID ==
[~2018-09-27] VITALS: Ht 185.4 cm; Wt 140.2 kg
[~2018-09-27] MED LIST changes: +BIPAP; +COMBIRESP IH; +OXYGEN MC
[2018-09-27 09:46] VITALS: BP 132/74; PULSE 84
== END ==
LOC: LIGHT
DX: E88.81 Metabolic syndrome and other insulin resistance (principal); E11.9 Type 2 diabetes mellitus without complications; I10 Essential (primary) hypertension; E66.01 Morbid (severe) obesity due to excess calories; Z68.41 Body mass index [BMI] 40.0-44.9, adult; Z71.3 Dietary counseling and surveillance
CPT/HCPCS: G0463

== ENCOUNTER 2018-10-20 10:59 | Emergency (ER) | payer MEDICARE, MEDICAID ==
[~2018-10-20] VITALS: Ht 185.4 cm; Wt 143.2 kg
[2018-10-20 12:10] LABS: BASO # 0.1 (0.0-0.2); BASO % 1.1 % (0.0-2.0); EOS # 0.1 (0.0-0.7); EOS % 0.9 % (0-4.0); GRAN # 3.2 (1.4-6.5); GRAN % 60.3 % (42.2-75.2); HEMOGLOBIN 11.6 g/dl (13.5-18.0); LYMPH # 1.1 (1.2-3.4); LYMPH % 20.4 % (20.0-51.0); MEAN CELL VOLUME 90 fl (80.0-100.0); MEAN CORPUSCULAR HEMOGLOBIN 29 pg (27.0-31.0); MEAN CORPUSCULAR HGB CONC 32 g/dl (33.0-37.0); MONO # 0.9 (0.1-0.6); MONO % 16.9 % (1.7-9.3); PLATELET COUNT 255 K/mm3 (130-400); REDCELL DISTRIBUTION WIDTH-CV 15.8 % (11.5-14.5)
[2018-10-20 12:19] LABS: ALANINE AMINOTRANSFERASE < 6 U/L (21-72); ALBUMIN 3.8 gm/dL (3.5-5.0); ALKALINE PHOSPHATASE 146 U/L (50-136); ANION GAP 10 mmol/L (7-16); AST,SGOT 23 U/L (15-37); BILIRUBIN,TOTAL 0.3 mg/dL (0.0-1.0); BLOOD UREA NITROGEN 17 mg/dL (9-20); CALCIUM 8.5 mg/dL (8.4-10.2); CARBON DIOXIDE 27 mmol/L (22-30); CHLORIDE 98 mmol/L (98-107); CREATININE, serum 1.55 mg/dL (0.66-1.25); GLUCOSE 124 mg/dL (74-106); POTASSIUM 3.6 mmol/L (3.4-5.0); SODIUM 135 mmol/L (137-145); TOTAL PROTEIN 8.1 gm/dL (6.4-8.2)
[2018-10-20 13:24] VITALS: TEMP 97.7
[2018-10-20 13:58] VITALS: BP 120/63; PULSE 76
[2018-10-20] MEDS ORDERED: TAMIFLU 75MG75 MG PO ×2 (13:58)
== END 2018-10-20 14:19 | disposition home or self-care (01) ==
LOC: COL.ER 10:59
PROVIDERS: Emergency Medicine
DX: J11.89 Influenza due to unidentified influenza virus with other manifestations (principal)
CPT/HCPCS: J1885; J7030

== ENCOUNTER → 2018-11-08 | Outpatient (CLI) | payer MEDICARE, MEDICAID ==
[~2018-11-08] VITALS: Ht 185.4 cm; Wt 142.4 kg
[~2018-11-08] MED LIST changes: +TAMIFLU 75MG75 MG PO
[2018-11-08 09:05] VITALS: BP 116/66; PULSE 68
== END ==
LOC: LIGHT 08:54
DX: E88.81 Metabolic syndrome and other insulin resistance (principal); I10 Essential (primary) hypertension; E11.65 Type 2 diabetes mellitus with hyperglycemia; Z68.41 Body mass index [BMI] 40.0-44.9, adult; Z71.3 Dietary counseling and surveillance
CPT/HCPCS: G0463

== ENCOUNTER → 2018-12-20 | Outpatient (CLI) | payer MEDICARE, MEDICAID ==
[~2018-12-20] VITALS: Ht 185.4 cm; Wt 139.5 kg
[2018-12-20 10:10] VITALS: BP 120/78; PULSE 76
== END ==
LOC: LIGHT 09:50
DX: E88.81 Metabolic syndrome and other insulin resistance (principal); E11.9 Type 2 diabetes mellitus without complications; I10 Essential (primary) hypertension; E66.01 Morbid (severe) obesity due to excess calories; Z68.41 Body mass index [BMI] 40.0-44.9, adult; Z71.3 Dietary counseling and surveillance
CPT/HCPCS: G0463

== ENCOUNTER → 2019-01-24 | Outpatient (CLI) | payer MEDICARE, MEDICAID ==
[~2019-01-24] VITALS: Ht 185.4 cm; Wt 137.0 kg
[2019-01-24 10:23] VITALS: BP 124/64; PULSE 72
== END ==
LOC: LIGHT 10:05
DX: E88.81 Metabolic syndrome and other insulin resistance (principal); E11.9 Type 2 diabetes mellitus without complications; I10 Essential (primary) hypertension; E66.01 Morbid (severe) obesity due to excess calories; Z68.39 Body mass index [BMI] 39.0-39.9, adult; Z71.3 Dietary counseling and surveillance
CPT/HCPCS: G0463

== ENCOUNTER → 2019-03-07 | Outpatient (CLI) | payer MEDICARE, MEDICAID ==
[~2019-03-07] VITALS: Ht 185.4 cm; Wt 134.9 kg
[2019-03-07 09:16] VITALS: BP 120/66; PULSE 64
== END ==
LOC: LIGHT 09:11
DX: E88.81 Metabolic syndrome and other insulin resistance (principal); E11.9 Type 2 diabetes mellitus without complications; I10 Essential (primary) hypertension; E66.01 Morbid (severe) obesity due to excess calories; Z68.39 Body mass index [BMI] 39.0-39.9, adult; Z71.3 Dietary counseling and surveillance
CPT/HCPCS: G0463

== ENCOUNTER → 2019-04-11 | Outpatient (CLI) | payer MEDICARE, MEDICAID ==
[~2019-04-11] VITALS: Ht 185.4 cm; Wt 134.0 kg
[2019-04-11 09:15] VITALS: BP 104/68; PULSE 60
== END ==
LOC: LIGHT 09:03
DX: E66.9 Obesity, unspecified (principal); Z68.39 Body mass index [BMI] 39.0-39.9, adult; Z71.3 Dietary counseling and surveillance
CPT/HCPCS: G0463

== ENCOUNTER → 2019-05-16 | Outpatient (CLI) | payer MEDICARE, MEDICAID ==
[~2019-05-16] VITALS: Ht 185.4 cm; Wt 134.5 kg
[2019-05-16 14:40] VITALS: BP 124/74; PULSE 64
--- NOTE | 2019-05-20 10:36 | NUR ---
RX ORDERS FOR GUILHERME DUFFY BY DR. KARIS GIBSON CALLED TO [facility] TO [facility] PHARMACIST. TOPAMAX 25MG PO AT SUPPER #30 R #3. TOPAMAX 50M PO HS #30 R #3.
== END ==
LOC: LIGHT 05-09 14:59
DX: E88.81 Metabolic syndrome and other insulin resistance (principal); E11.9 Type 2 diabetes mellitus without complications; I10 Essential (primary) hypertension; E66.01 Morbid (severe) obesity due to excess calories; Z68.39 Body mass index [BMI] 39.0-39.9, adult; Z71.3 Dietary counseling and surveillance
CPT/HCPCS: G0463

== ENCOUNTER 2019-07-22 20:00 | Emergency (ER) | payer MEDICARE, MEDICAID ==
[~2019-07-22] VITALS: Ht 185.4 cm; Wt 137.7 kg
[~2019-07-22 20:00] MED LIST changes: +LUNESTA3 MG PO; +SAXENDA6 MG/ML SQ
[2019-07-22 20:29] VITALS: BP 122/67; TEMP 98.9
[2019-07-22 23:50] LABS: BASO # 0.1 (0.0-0.2); BASO % 1.4 % (0.0-2.0); EOS # 0.2 (0.0-0.7); EOS % 2.2 % (0-4.0); GRAN # 3.9 (1.4-6.5); GRAN % 49.9 % (42.2-75.2); HEMATOCRIT 40.3 % (42.0-52.0); HEMOGLOBIN 13.3 g/dl (13.5-18.0); LYMPH % 38.4 % (20.0-51.0); MEAN CELL VOLUME 91 fl (80.0-100.0); MEAN CORPUSCULAR HEMOGLOBIN 30 pg (27.0-31.0); MEAN CORPUSCULAR HGB CONC 33 g/dl (33.0-37.0); MEAN PLATELET VOLUME 8.4 fl (7.4-10.4); MONO # 0.6 (0.1-0.6); MONO % 7.7 % (1.7-9.3); PLATELET COUNT 302 K/mm3 (130-400); RED BLOOD COUNT 4.44 M/mm3 (4.20-5.60); REDCELL DISTRIBUTION WIDTH-CV 14.6 % (11.5-14.5)
[2019-07-23 00:11] LABS: ERYTHROCYTE SEDIMENTATION RATE 26 mm/hr (0-30)
[2019-07-23] MEDS ORDERED: PREDNISONE20 MG PO (00:38)
[2019-07-23] MEDS ORDERED: NORCO 325 MG-51 TAB PO ×2 (00:43→00:44)
[2019-07-23 01:14] VITALS: PULSE 60
== END 2019-07-23 01:14 | disposition home or self-care (01) ==
LOC: COL.ER 20:00
PROVIDERS: Physician Assistant
DX: M10.9 Gout, unspecified (principal); N28.9 Disorder of kidney and ureter, unspecified
CPT/HCPCS: J7512

== ENCOUNTER → 2019-08-29 | Outpatient (CLI) | payer MEDICARE, MEDICAID ==
[~2019-08-29] VITALS: Ht 185.4 cm; Wt 133.6 kg
[~2019-08-29] MED LIST changes: +DOXYCYCLINE HY100 MG PO
[2019-08-29 09:34] VITALS: BP 94/56; PULSE 60
== END ==
LOC: LIGHT 09:06
DX: Z68.38 Body mass index [BMI] 38.0-38.9, adult (principal); E88.81 Metabolic syndrome and other insulin resistance; E11.9 Type 2 diabetes mellitus without complications; I10 Essential (primary) hypertension
CPT/HCPCS: G0463

== ENCOUNTER → 2019-10-17 | Outpatient (CLI) | payer MEDICARE, MEDICAID ==
[~2019-10-17] VITALS: Ht 185.4 cm; Wt 127.7 kg
[2019-10-17 09:33] VITALS: BP 106/66; PULSE 76
== END ==
LOC: LIGHT 09:04
DX: Z68.37 Body mass index [BMI] 37.0-37.9, adult (principal); E88.81 Metabolic syndrome and other insulin resistance; E11.9 Type 2 diabetes mellitus without complications; I10 Essential (primary) hypertension
CPT/HCPCS: G0463

== ENCOUNTER 2019-11-03 14:10 | Emergency (ER) | payer MEDICARE, MEDICAID ==
[~2019-11-03] VITALS: Ht 182.9 cm; Wt 135.0 kg
[~2019-11-03 14:10] MED LIST changes: -DOXYCYCLINE HY100 MG PO
[2019-11-03 15:52] LABS: BASO # 0.1 (0.0-0.2); BASO % 0.9 % (0.0-2.0); EOS # 0.2 (0.0-0.7); EOS % 1.8 % (0-4.0); GRAN % 66.1 % (42.2-75.2); HEMOGLOBIN 11.9 g/dl (13.5-18.0); LYMPH # 2.2 (1.2-3.4); LYMPH % 21.3 % (20.0-51.0); MEAN CELL VOLUME 93 fl (80.0-100.0); MEAN CORPUSCULAR HEMOGLOBIN 30 pg (27.0-31.0); MEAN CORPUSCULAR HGB CONC 32 g/dl (33.0-37.0); MONO % 9.6 % (1.7-9.3); PLATELET COUNT 236 K/mm3 (130-400); RED BLOOD COUNT 3.98 M/mm3 (4.20-5.60); REDCELL DISTRIBUTION WIDTH-CV 14.9 % (11.5-14.5)
[2019-11-03 16:03] LABS: ALANINE AMINOTRANSFERASE 17 U/L (4-49); ALBUMIN 3.9 gm/dL (3.5-5.0); ALKALINE PHOSPHATASE 138 U/L (50-136); ANION GAP 9 mmol/L (7-16); AST,SGOT 29 U/L (15-37); BILIRUBIN,TOTAL 0.6 mg/dL (0.0-1.0); BLOOD UREA NITROGEN 12 mg/dL (9-20); CALCIUM 8.8 mg/dL (8.4-10.2); CARBON DIOXIDE 29 mmol/L (22-30); CHLORIDE 102 mmol/L (98-107); CREATININE, serum 1.15 (0.66-1.25); GLUCOSE 101 mg/dL (74-106); POTASSIUM 3.1 mmol/L (3.4-5.0); SODIUM 141 mmol/L (137-145); TOTAL PROTEIN 7.6 gm/dL (6.4-8.2)
[2019-11-03 16:15] LABS: HEMATOCRIT 36.8 % (42.0-52.0)
[2019-11-03 16:16] LABS: TROPONIN-I < 0.012 ng/mL (0.000-0.035)
[2019-11-03] MEDS ORDERED: DOXYCYCLINE HY100 MG PO (17:29)
[2019-11-03 17:41] VITALS: BP 98/72; PULSE 62; TEMP 98.4
== END 2019-11-03 17:55 | disposition home or self-care (01) ==
LOC: COL.ER 14:10
PROVIDERS: Emergency Medicine
DX: J18.9 Pneumonia, unspecified organism (principal); E11.9 Type 2 diabetes mellitus without complications; J45.909 Unspecified asthma, uncomplicated; E66.9 Obesity, unspecified; K21.9 Gastro-esophageal reflux disease without esophagitis; G47.33 Obstructive sleep apnea (adult) (pediatric); F20.9 Schizophrenia, unspecified; Z99.81 Dependence on supplemental oxygen; Z87.891 Personal history of nicotine dependence
CPT/HCPCS: Q9967

== ENCOUNTER → 2020-01-30 | Outpatient (CLI) | payer MEDICARE, MEDICAID ==
[~2020-01-30] VITALS: Ht 182.9 cm; Wt 130.6 kg
[~2020-01-30] MED LIST changes: +DOXYCYCLINE HY100 MG PO; +TOPAMAX 25MG25 M1 PO
[2020-01-30 15:23] VITALS: BP 118/66; PULSE 74
== END ==
LOC: LIGHT 07:29
DX: E66.01 Morbid (severe) obesity due to excess calories (principal); Z68.39 Body mass index [BMI] 39.0-39.9, adult; E88.81 Metabolic syndrome and other insulin resistance; E11.9 Type 2 diabetes mellitus without complications; I10 Essential (primary) hypertension
CPT/HCPCS: G0463

== ENCOUNTER → 2020-02-27 | Outpatient (CLI) | payer MEDICARE, MEDICAID ==
[~2020-02-27] VITALS: Ht 182.9 cm; Wt 133.6 kg
[2020-02-27 15:48] VITALS: BP 122/74; PULSE 72
== END ==
LOC: LIGHT 13:54
DX: E66.8 Other obesity (principal); Z68.39 Body mass index [BMI] 39.0-39.9, adult; E88.81 Metabolic syndrome and other insulin resistance; I10 Essential (primary) hypertension; E11.9 Type 2 diabetes mellitus without complications
CPT/HCPCS: G0463

== ENCOUNTER → 2020-03-26 | Outpatient (CLI) | payer MEDICARE, MEDICAID ==
[~2020-03-26] VITALS: Ht 182.9 cm; Wt 131.3 kg
[2020-03-26 09:09] VITALS: BP 116/74; PULSE 88
== END ==
LOC: LIGHT 09:00
DX: E66.01 Morbid (severe) obesity due to excess calories (principal); Z68.39 Body mass index [BMI] 39.0-39.9, adult; E88.81 Metabolic syndrome and other insulin resistance; E11.9 Type 2 diabetes mellitus without complications; I10 Essential (primary) hypertension
CPT/HCPCS: G0463

== ENCOUNTER → 2020-06-02 | Outpatient (CLI) | payer MEDICARE, MEDICAID | LOC: ZCOL.LAB 19:51 | DX: B34.9 Viral infection, unspecified (principal); Z20.828 Contact with and (suspected) exposure to other viral communicable diseases ==

== ENCOUNTER 2020-06-04 10:06 | Emergency (ER) | payer MEDICARE, MEDICAID ==
[~2020-06-04] VITALS: Ht 175.3 cm; Wt 136.4 kg
[2020-06-04 10:13] VITALS: TEMP 98.6
[2020-06-04 10:57] LABS: ALANINE AMINOTRANSFERASE 16 U/L (4-49); ALBUMIN 4.2 gm/dL (3.5-5.0); ALKALINE PHOSPHATASE 130 U/L (50-136); ANION GAP 8 mmol/L (7-16); AST,SGOT 29 U/L (15-37); BILIRUBIN,TOTAL 0.5 mg/dL (0.0-1.0); BLOOD UREA NITROGEN 16 mg/dL (9-20); CALCIUM 8.9 mg/dL (8.4-10.2); CARBON DIOXIDE 31 mmol/L (22-30); CHLORIDE 99 mmol/L (98-107); CREATININE, serum 1.31 (0.66-1.25); GLUCOSE 130 mg/dL (74-106); POTASSIUM 3.5 mmol/L (3.4-5.0); SODIUM 138 mmol/L (137-145); TOTAL PROTEIN 8.1 gm/dL (6.4-8.2)
[2020-06-04 10:58] LABS: INR 1.1 (0.8-3.0)
[2020-06-04 11:00] LABS: PARTIAL THROMBOPLASTIN TIME 18.6 SECONDS (26.0-37.0)
[2020-06-04 11:09] LABS: TROPONIN-I < 0.012 ng/mL (0.000-0.035)
[2020-06-04 11:33] LABS: BASO # 0.1 (0.0-0.2); BASO % 1.3 % (0.0-2.0); EOS # 0.4 (0.0-0.7); EOS % 4.9 % (0-4.0); GRAN # 4.8 (1.4-6.5); GRAN % 54.8 % (42.2-75.2); HEMATOCRIT 38.2 % (42.0-52.0); HEMOGLOBIN 12.5 g/dl (13.5-18.0); LYMPH # 2.6 (1.2-3.4); LYMPH % 29.7 % (20.0-51.0); MEAN CELL VOLUME 93 fl (80.0-100.0); MEAN CORPUSCULAR HEMOGLOBIN 30 pg (27.0-31.0); MEAN CORPUSCULAR HGB CONC 33 g/dl (33.0-37.0); MEAN PLATELET VOLUME 9.7 fl (7.4-10.4); MONO # 0.8 (0.1-0.6); PLATELET COUNT 291 K/mm3 (130-400); RED BLOOD COUNT 4.11 M/mm3 (4.20-5.60); REDCELL DISTRIBUTION WIDTH-CV 14.6 % (11.5-14.5)
[2020-06-04 13:57] VITALS: BP 120/69; PULSE 64
== END 2020-06-04 13:50 | disposition home or self-care (01) ==
LOC: COL.ER 10:06
PROVIDERS: Physician Assistant
DX: R07.89 Other chest pain (principal); J44.9 Chronic obstructive pulmonary disease, unspecified; F32.9 Major depressive disorder, single episode, unspecified; Z95.9 Presence of cardiac and vascular implant and graft, unspecified; Z88.0 Allergy status to penicillin; Z88.6 Allergy status to analgesic agent; Z87.891 Personal history of nicotine dependence
CPT/HCPCS: J1170; J2405

== ENCOUNTER 2020-08-03 10:15 | Outpatient (RCR) | payer MEDICARE, MEDICAID | END 2020-08-10 | disposition home or self-care (01) | LOC: MKS.ESL.PT | DX: M75.111 Incomplete rotator cuff tear or rupture of right shoulder, not specified as traumatic (principal); M75.112 Incomplete rotator cuff tear or rupture of left shoulder, not specified as traumatic; M75.42 Impingement syndrome of left shoulder ==

== ENCOUNTER → 2020-11-09 | Outpatient (RCR) | payer MEDICARE, MEDICAID ==
[~2020-11-09] MED LIST changes: +DEMADEX 20MG20 M1 PO; -LUNESTA3 MG PO; -NEURONTIN100 MG/CAP PO; +NEURONTIN300 MG/CAP PO; +TOPAMAX 100MG100 M1 PO; -TOPAMAX 25MG25 M1 PO; -VIIBRYD20 MG PO; +VIIBRYD40 MG PO; +VISTARIL 2525 MG/CAP PO
== END | disposition home or self-care (01) ==
LOC: MKS.ESL.PT
DX: M75.111 Incomplete rotator cuff tear or rupture of right shoulder, not specified as traumatic (principal); M75.112 Incomplete rotator cuff tear or rupture of left shoulder, not specified as traumatic

== ENCOUNTER 2020-12-03 13:15 | Outpatient (RCR) | payer MEDICARE, MEDICAID ==
[~2020-12-03 13:15] MED LIST changes: -DEMADEX 20MG20 M1 PO; -VISTARIL 2525 MG/CAP PO
[2020-12-08] MEDS ORDERED: VISTARIL 2525 MG/CAP PO (18:45)
[2020-12-08] MEDS ORDERED: DEMADEX 20MG20 M1 PO (18:45)
[2020-12-08] MEDS ORDERED: FLOMAX 0.40.4 MG/CAP PO (18:46)
[2020-12-08] MEDS ORDERED: PROSCAR 5MG5 MG PO (18:47)
[2020-12-08] MEDS ORDERED: ASPIRIN 32325 MG/TAB PO (18:47)
[2020-12-08] MEDS ORDERED: PROTONIX 40MG T40 MG PO (18:48)
== END 2021-03-03 ==
LOC: MKS.ESL.PT
DX: M75.111 Incomplete rotator cuff tear or rupture of right shoulder, not specified as traumatic (principal); M75.112 Incomplete rotator cuff tear or rupture of left shoulder, not specified as traumatic

== ENCOUNTER 2020-12-21 06:30 | Outpatient (RCR) | payer MEDICARE, MEDICAID ==
[2020-12-08] VITALS (7 sets, daily range): BP systolic 92–138; BP diastolic 59–71; PULSE 61–69; TEMP 98
[2020-12-08 08:25] LABS: CALCIUM 9.3 mg/dL (8.4-10.2); CREATININE, serum 1.24 (0.66-1.25); POTASSIUM 3.2 mmol/L (3.4-5.0)
[2020-12-09 08:37] VITALS: BP 106/68; PULSE 64; TEMP 98
[2020-12-09 08:59] LABS: CREATININE, serum 1.14 (0.66-1.25); POTASSIUM 3.5 mmol/L (3.4-5.0)
[2020-12-09 09:30] VITALS: BP 111/65; PULSE 61
[2020-12-09 10:30] VITALS: BP 120/66; PULSE 61
[2020-12-09 11:45] VITALS: BP 114/73; PULSE 67
[2020-12-09 14:25] VITALS: BP 120/63; PULSE 68
--- NOTE | 2020-12-09 14:30 | NUR ---
PT TOLERATED TODAY'S INFUSION WITH NO PROBLEM. PT HAS BEEN AMBULATORY IN ROOM TO USE URINAL INDEPENDENTLY. PT IS ESCORTED TO EXIT VIA WHEELCHAIR. WE LEFT IV IN PLACE, CUSHIONED WITH GAUZE AND GENTLY WRAPPED WITH COBAN.
[2020-12-10 07:00] VITALS: BP 109/61; PULSE 73; TEMP 98.4
[2020-12-10 07:08] LABS: CALCIUM 9.2 mg/dL (8.4-10.2); CREATININE, serum 1.31 (0.66-1.25); POTASSIUM 3.5 mmol/L (3.4-5.0)
[2020-12-10 09:15] VITALS: BP 109/67; PULSE 69
[2020-12-10 11:30] VITALS: BP 106/69; PULSE 60
[2020-12-10 12:30] VITALS: BP 110/72; PULSE 71
--- NOTE | 2020-12-10 13:00 | NUR ---
Weight obtained post infusion of 142 kg.
[2020-12-11 07:42] VITALS: BP 120/62; PULSE 74; TEMP 98.2
[2020-12-11 09:08] LABS: CALCIUM 9.1 mg/dL (8.4-10.2); CREATININE, serum 1.17 (0.66-1.25); POTASSIUM 3.3 mmol/L (3.4-5.0)
[2020-12-11 11:30] VITALS: BP 115/64; PULSE 68
[2020-12-11 13:32] VITALS: BP 120/62; PULSE 72; TEMP 98.9
[2020-12-14 07:14] VITALS: BP 96/63; PULSE 63; TEMP 97.8
[2020-12-14 08:41] VITALS: BP 101/65; PULSE 62
[2020-12-14 10:20] VITALS: BP 100/63; PULSE 61
[2020-12-14 10:37] LABS: CALCIUM 9.1 mg/dL (8.4-10.2); CREATININE, serum 1.23 (0.66-1.25); POTASSIUM 3.3 mmol/L (3.4-5.0)
--- NOTE | 2020-12-14 10:38 | NUR ---
Pt is doing well during his infusion. telemetry has been on throughout. Pt sitting in recliner playing cards with his . no complaints. pt has had 900 cc urine output so far today. call light in reach. [facility]
[2020-12-15 07:22] VITALS: BP 110/70; PULSE 60; TEMP 98.2
[2020-12-15 07:45] LABS: CALCIUM 8.9 mg/dL (8.4-10.2); CREATININE, serum 1.18 (0.66-1.25); POTASSIUM 3.4 mmol/L (3.4-5.0)
[2020-12-15 08:52] VITALS: BP 106/66; PULSE 62
[2020-12-15 10:26] VITALS: BP 102/69; PULSE 62
[2020-12-15 12:25] VITALS: BP 104/67; PULSE 60
[2020-12-16 07:00] VITALS: BP 108/56; PULSE 62; TEMP 98.1
[2020-12-16 08:30] VITALS: BP 105/59; PULSE 68
[2020-12-16 09:30] VITALS: BP 115/65; PULSE 61
[2020-12-16 10:30] VITALS: BP 118/69; PULSE 60
[2020-12-16 11:30] VITALS: BP 119/55; PULSE 62
[2020-12-16 12:30] VITALS: BP 133/76; PULSE 62
--- NOTE | 2020-12-16 13:19 | NUR ---
Pt escorted out via wheelchair by this nurse.
[2020-12-17] VITALS (8 sets, daily range): BP systolic 90–129; BP diastolic 51–66; PULSE 55–72; TEMP 97.7
[2020-12-17 07:12] LABS: CALCIUM 9.1 mg/dL (8.4-10.2); CREATININE, serum 1.21 (0.66-1.25); POTASSIUM 3.3 mmol/L (3.4-5.0)
[2020-12-18] VITALS (12 sets, daily range): BP systolic 92–118; BP diastolic 45–59; PULSE 59–65; TEMP 97.6
[~2020-12-21] VITALS: Ht 175.3 cm; Wt 146.0 kg
[~2020-12-21 06:30] MED LIST changes: +DEMADEX 20MG20 M1 PO; +VISTARIL 2525 MG/CAP PO
[2020-12-21 07:01] LABS: CALCIUM 8.7 mg/dL (8.4-10.2); CREATININE, serum 1.13 (0.66-1.25); POTASSIUM 3.7 mmol/L (3.4-5.0)
[2020-12-21 07:30] VITALS: BP 102/57; PULSE 62; TEMP 98
[2020-12-21 08:30] VITALS: BP 114/63; PULSE 64
[2020-12-21 09:00] VITALS: BP 114/63; BP 117/69; PULSE 60; PULSE 62
[2020-12-21 10:00] VITALS: BP 100/55; PULSE 62
[2020-12-21 12:00] VITALS: BP 116/62; PULSE 69
[2020-12-21 13:00] VITALS: BP 111/64; PULSE 60
== END 2020-12-21 13:00 | disposition still patient (30) ==
LOC: EUO 06:30
PROVIDERS: Internal Medicine Interventional Cardiology
DX: R60.0 Localized edema (principal)

== ENCOUNTER → 2021-04-05 | Outpatient (CLI) | payer MEDICARE, MEDICAID | LOC: COL.RAD 15:03 | DX: R13.10 Dysphagia, unspecified (principal) ==

== ENCOUNTER 2021-04-13 10:45 | Outpatient (RCR) | payer MEDICARE, MEDICAID | END 2021-05-30 | disposition home or self-care (01) | LOC: WSST | DX: R13.10 Dysphagia, unspecified (principal) ==

== ENCOUNTER → 2021-07-22 | Outpatient (CLI) | payer MEDICARE, MEDICAID ==
[2021-07-22 16:19] LABS: BASO # 0.1 K/mm3 (0.0-0.2); EOS # 0.3 K/mm3 (0.0-0.7); EOS % 3.9 % (0.0-4.0); GRAN # 4.1 K/mm3 (1.4-6.5); GRAN % 58.5 % (42.2-75.2); HEMOGLOBIN 11.2 g/dl (13.5-18.0); LYMPH % 28.2 % (20.0-51.0); MEAN CELL VOLUME 98 fl (80.0-100.0); MEAN CORPUSCULAR HEMOGLOBIN 31 pg (27-31); MEAN CORPUSCULAR HGB CONC 31 g/dl (33.0-37.0); MEAN PLATELET VOLUME 9.5 fl (7.4-10.4); MONO # 0.6 K/mm3 (0.1-0.6); PLATELET COUNT 301 K/mm3 (130-400); RED BLOOD COUNT 3.65 M/mm3 (4.20-5.60); REDCELL DISTRIBUTION WIDTH-CV 14.4 % (11.5-14.5)
[2021-07-22 16:25] LABS: HEMATOCRIT 35.7 % (42.0-52.0)
[2021-07-22 16:42] LABS: ALBUMIN 3.5 gm/dL (3.4-4.8); BILIRUBIN,TOTAL 0.4 mg/dL (0.2-1.2); C-REACTIVE PROTEIN 2.69 mg/dL (0.00-0.50); CALCIUM 8.5 mg/dL (8.4-10.2); CREATININE, serum 1.47 mg/dL (0.72-1.25); POTASSIUM 3.8 mmol/L (3.5-4.5); TOTAL PROTEIN 6.9 gm/dL (6.2-8.1)
[2021-07-22 16:43] LABS: ERYTHROCYTE SEDIMENTATION RATE 35 mm/hr (0-30)
== END ==
LOC: ZCOL.LAB 15:15
PROVIDERS: Nurse Practitioner
DX: M79.89 Other specified soft tissue disorders (principal)

== ENCOUNTER 2021-08-24 11:09 | Emergency (ER) | payer MEDICARE, MEDICAID ==
[~2021-08-24] VITALS: Ht 182.9 cm; Wt 136.4 kg
[2021-08-24 11:16] VITALS: TEMP 97.7
[2021-08-24] MEDS ORDERED: ALDACTONE 25MG25 M1 PO (11:46)
[2021-08-24 11:54] LABS: BASO # 0.1 K/mm3 (0.0-0.2); EOS # 0.4 K/mm3 (0.0-0.7); GRAN # 3.7 K/mm3 (1.4-6.5); GRAN % 47.9 % (42.2-75.2); HEMATOCRIT 37.3 % (42.0-52.0); HEMOGLOBIN 11.9 g/dl (13.5-18.0); LYMPH # 2.8 K/mm3 (1.2-3.4); LYMPH % 35.7 % (20.0-51.0); MEAN CELL VOLUME 94 fl (80.0-100.0); MEAN CORPUSCULAR HEMOGLOBIN 30 pg (27-31); MEAN CORPUSCULAR HGB CONC 32 g/dl (33.0-37.0); MEAN PLATELET VOLUME 8.7 fl (7.4-10.4); MONO # 0.8 K/mm3 (0.1-0.6); MONO % 10.1 % (1.7-9.3); PLATELET COUNT 305 K/mm3 (130-400); RED BLOOD COUNT 3.98 M/mm3 (4.20-5.60); REDCELL DISTRIBUTION WIDTH-CV 14.4 % (11.5-14.5)
[2021-08-24 12:07] LABS: ALANINE AMINOTRANSFERASE 8 U/L (0-55); ALBUMIN 3.5 gm/dL (3.4-4.8); ALKALINE PHOSPHATASE 167 U/L (40-150); ANION GAP 9 mmol/L (7-16); AST,SGOT 17 U/L (5-34); BILIRUBIN,TOTAL 0.3 mg/dL (0.2-1.2); BLOOD UREA NITROGEN 11 mg/dL (8-26); CALCIUM 8.6 mg/dL (8.4-10.2); CARBON DIOXIDE 25 mmol/L (23-31); CHLORIDE 101 mmol/L (98-107); CREATININE, serum 1.26 mg/dL (0.72-1.25); GLUCOSE 95 mg/dL (70-99); POTASSIUM 3.6 mmol/L (3.5-4.5); SODIUM 135 mmol/L (136-145)
[2021-08-24] MEDS ORDERED: SINGULAIR 110 MG/TAB PO (12:11)
[2021-08-24] MEDS ORDERED: ABILIFY30 MG PO (12:14)
[2021-08-24 12:17] LABS: TROPONIN-I < 0.010 ng/mL (0.00-0.033)
[2021-08-24 14:08] LABS: COLLECTION METHOD CLEAN CATCH
[2021-08-24 14:15] LABS: PH 7 (5-8); SQUAMOUS EPITHELIAL 0-2 /hpf (0-10); URINE APPEARANCE Clear (CLEAR/HAZY); URINE BACTERIA None Seen /hpf (NONE SEEN); URINE BILIRUBIN Negative (NEGATIVE); URINE BLOOD Negative (NEGATIVE); URINE COLOR Straw (YELLOW); URINE GLUCOSE Negative (NEGATIVE); URINE KETONE Negative (NEGATIVE); URINE LEUKOCYTE ESTERASE Negative (NEGATIVE); URINE NITRATE Negative (NEGATIVE); URINE PROTEIN(semi-quant) Negative (NEGATIVE); URINE RBC 0-2 /hpf (0-2); URINE UROBILINOGEN Negative (NEGATIVE)
[2021-08-24] MEDS ORDERED: DOXYCYCLINE 10100 MG PO (15:03)
[2021-08-24 15:15] VITALS: BP 136/46; PULSE 82
== END 2021-08-24 15:15 | disposition home or self-care (01) ==
LOC: COL.ER 11:09
PROVIDERS: Emergency Medicine
DX: L03.116 Cellulitis of left lower limb (principal); L03.115 Cellulitis of right lower limb; R07.9 Chest pain, unspecified; I50.9 Heart failure, unspecified; I11.0 Hypertensive heart disease with heart failure; F25.9 Schizoaffective disorder, unspecified; F41.9 Anxiety disorder, unspecified; F32.A Depression, unspecified; J44.9 Chronic obstructive pulmonary disease, unspecified; E78.00 Pure hypercholesterolemia, unspecified; Z99.81 Dependence on supplemental oxygen; Z87.891 Personal history of nicotine dependence; Z20.822 Contact with and (suspected) exposure to COVID-19; Z88.0 Allergy status to penicillin; Z79.82 Long term (current) use of aspirin; Z79.899 Other long term (current) drug therapy

== ENCOUNTER 2021-09-29 06:53 | Day surgery (SDC) | payer MEDICARE, MEDICAID ==
[~2021-09-29] VITALS: Ht 182.9 cm; Wt 144.5 kg
[~2021-09-29 06:53] MED LIST changes: +ALDACTONE 25MG25 M1 PO
[2021-09-29 07:45] VITALS: BP 124/59; PULSE 64; TEMP 97.5
[2021-09-29] MEDS ORDERED: CELEXA40 MG PO (08:12)
[2021-09-29] MEDS ORDERED: ROXICODONE 55 MG/TAB PO (08:16)
[2021-09-29] MEDS ORDERED: VIIBRYD40 MG PO (08:23)
[2021-09-29] MEDS ORDERED: FERGON225 MG PO (08:24)
[2021-09-29] MEDS ORDERED: LUNESTA2 MG PO (08:24)
[2021-09-29 11:59] VITALS: BP 99/81; PULSE 59
--- NOTE | 2021-09-29 11:59 | NUR ---
Patient returns to room 1 per cart from surgery accompanied by Rashid FINE and Sissy WADE. IV fluids infusing. Sling on the right arm. Prem wrap dressing clean and dry on the right arm. Patient on oxygen at 2L per nasal cannula. Siderails up x2 and call light in reach. Patient had supraclavicular block placed pre-op and denies pain. Right hand warm to touch. Spouse in room.
[2021-09-29 12:14] VITALS: BP 109/60; PULSE 64
--- NOTE | 2021-09-29 12:14 | NUR ---
IV to INT and assisted to edge of the bed and is attempting to use the urinal. Unable to urinate when sitting and assisted with standing. Voids large amount of urine and lays back on cart. Remains on oxygen at 2L per nasal cannula.
[2021-09-29 12:29] VITALS: BP 119/57; PULSE 63
--- NOTE | 2021-09-29 12:29 | NUR ---
Eating muffin and drinking Sprite. Also eating applesauce. Continues to deny pain right arm and right arm remains in sling.
--- NOTE | 2021-09-29 12:35 | NUR ---
Eating second muffin and continues to keep right arm in sling and denies pain. States the block is working well.
--- NOTE | 2021-09-29 12:47 | NUR ---
INT discontinued and site is free of redness or swelling. Assisted with dressing and tolerates activity well.
--- NOTE | 2021-09-29 13:13 | NUR ---
Dismissal instructions given and voices understanding of these. Instructed on ice and elevation.
--- NOTE | 2021-09-29 13:27 | NUR ---
Patient dismissed to home driven by spouse and taken to the front door per wheelchair and assisted into vehicle with instructions in hand.
== END 2021-09-29 13:27 | disposition home or self-care (01) ==
LOC: SDCO 06:53
DX: G56.01 Carpal tunnel syndrome, right upper limb (principal); G56.21 Lesion of ulnar nerve, right upper limb; E11.42 Type 2 diabetes mellitus with diabetic polyneuropathy; J44.9 Chronic obstructive pulmonary disease, unspecified; I11.0 Hypertensive heart disease with heart failure; I50.30 Unspecified diastolic (congestive) heart failure; B19.20 Unspecified viral hepatitis C without hepatic coma; I25.10 Atherosclerotic heart disease of native coronary artery without angina pectoris; I73.9 Peripheral vascular disease, unspecified; G47.33 Obstructive sleep apnea (adult) (pediatric); Z87.891 Personal history of nicotine dependence; Z95.0 Presence of cardiac pacemaker; Z99.81 Dependence on supplemental oxygen
CPT/HCPCS: J1100; J1200; J2250; J2704; J2795; J3010; J7120

== ENCOUNTER 2021-11-22 07:01 | Day surgery (SDC) | payer MEDICARE, MEDICAID ==
[~2021-11-22] VITALS: Ht 182.9 cm; Wt 144.1 kg
[~2021-11-22 07:01] MED LIST changes: +FERGON225 MG PO
[2021-11-22 07:33] VITALS: BP 142/73; PULSE 88; TEMP 97.6
[2021-11-22 11:58] VITALS: BP 141/68; PULSE 71
--- NOTE | 2021-11-22 11:58 | NUR ---
PATIENT RETURNS TO ROOM 6 PER CART FROM SURGERY ACCOMPANIED BY BEBO FINE AND MAYI WADE. PATIENT IS ON OXYGEN PER MASK AT 8L. OPENS EYES TO VERAL STIMULI. SIDERAILS UP X2 AND CALL LIGHT IN REACH. LEFT ARM WITH BULKY DRESSING AND IN SLING. FINGERS WARM TO TOUCH ON THE LEFT ARM. WILL CONTINUE TO MONITOR.
[2021-11-22 12:13] VITALS: BP 128/69; PULSE 63
--- NOTE | 2021-11-22 12:13 | NUR ---
MORE AWAKE AND OXYGEN ON AT 3L PER NASAL CANNULA. LEFT ARM REMAINS IN THE SLING AND ELEVATED ON PILLOW. STATES THAT HE NEEDS TO URINATE. ASSISTED WITH URINAL.
--- NOTE | 2021-11-22 12:28 | NUR ---
ASSISTED UP TO THE BEDSIDE COMMODE WITH TWO PERSON ASSIST. WILL MONITOR.
[2021-11-22 12:43] VITALS: BP 115/69; PULSE 61
--- NOTE | 2021-11-22 12:43 | NUR ---
ASSISTED BACK INTO BED. DID NOT VOID. STATES HE HAS NOT TAKEN HIS MEDICATIONS AND WILL GO HOME AND START BACK ON THOSE TO HELP WITH URINATION.
[2021-11-22 12:58] VITALS: BP 123/70; PULSE 73
--- NOTE | 2021-11-22 12:58 | NUR ---
EATING MUFFIN AND DRINKING DIET SPRITE. CONTINUES TO DENY PAIN OR NAUSEA.
--- NOTE | 2021-11-22 13:20 | NUR ---
IV DISCONTINUED AND SITE IS FREE OF REDNESS OF SWELLING. ASSISTED WITH DRESSING. LEFT ARM REMAINS IN SLING AND CONTINUES TO DENY PAIN OR NAUSEA.
--- NOTE | 2021-11-22 13:31 | NUR ---
PATIENT DISMISSED TO HOME DRIVEN BY SPOUSE PER PRIVATE VEHICLE. BOTH PATIENT AND SPOUSE ESCORTED TO THE VEHCILE PER WHEELCHAIRS AND ASSISTED INTO CAR. DISMISSAL INSTRUCTIONS ARE IN HAND.
== END 2021-11-22 13:31 | disposition home or self-care (01) ==
LOC: SDCO 07:01
DX: G56.02 Carpal tunnel syndrome, left upper limb (principal); G56.22 Lesion of ulnar nerve, left upper limb; G47.33 Obstructive sleep apnea (adult) (pediatric); Z87.891 Personal history of nicotine dependence; Z99.81 Dependence on supplemental oxygen
CPT/HCPCS: J0690; J1100; J1885; J2250; J2405; J2704; J2795; J3010; J7120

== ENCOUNTER 2021-11-22 17:51 | Emergency (ER) | payer MEDICARE, MEDICAID ==
[~2021-11-22] VITALS: Ht 182.9 cm; Wt 145.5 kg
[2021-11-22 19:15] VITALS: BP 132/69; PULSE 61; TEMP 98.4
== END 2021-11-22 19:25 | disposition home or self-care (01) ==
LOC: COL.ER 17:51
DX: L76.22 Postprocedural hemorrhage of skin and subcutaneous tissue following other procedure (principal); Z87.891 Personal history of nicotine dependence

== ENCOUNTER 2021-11-26 07:04 | Day surgery (SDC) | payer MEDICARE, MEDICAID ==
[~2021-11-26] VITALS: Ht 182.9 cm; Wt 144.0 kg
[2021-11-26 08:22] VITALS: BP 144/77; PULSE 69; TEMP 97.4
[2021-11-26 10:37] VITALS: BP 124/73; PULSE 70
[2021-11-26 10:45] VITALS: BP 111/64; PULSE 61
[2021-11-26 11:00] VITALS: BP 122/66; PULSE 63
--- NOTE | 2021-11-26 11:31 | NUR ---
Discharge instructions given to pt.Pt verbalizes understanding.Pt escorted out via wheelchair by this nurse.
== END 2021-11-26 11:34 ==
LOC: SDCO 07:04
DX: D12.3 Benign neoplasm of transverse colon (principal); D50.9 Iron deficiency anemia, unspecified; K20.90 Esophagitis, unspecified without bleeding; K22.70 Barrett's esophagus without dysplasia; K59.00 Constipation, unspecified; K92.1 Melena; E11.9 Type 2 diabetes mellitus without complications; G47.33 Obstructive sleep apnea (adult) (pediatric); F11.20 Opioid dependence, uncomplicated; Z99.81 Dependence on supplemental oxygen; Z87.891 Personal history of nicotine dependence
CPT/HCPCS: J2704; J7120

== ENCOUNTER 2022-01-01 14:35 | Emergency (ER) | payer MEDICARE, MEDICAID ==
[~2022-01-01] VITALS: Ht 182.9 cm; Wt 145.5 kg
[2022-01-01 15:11] VITALS: TEMP 97.2
[2022-01-01 15:35] LABS: BASO # 0.1 K/mm3 (0.0-0.2); BASO % 1.1 % (0.0-2.0); EOS # 0.3 K/mm3 (0.0-0.7); EOS % 3.5 % (0.0-4.0); GRAN # 5.8 K/mm3 (1.4-6.5); GRAN % 62.4 % (42.2-75.2); HEMATOCRIT 39.1 % (42.0-52.0); HEMOGLOBIN 12.7 g/dl (13.5-18.0); LYMPH # 2.1 K/mm3 (1.2-3.4); LYMPH % 22.7 % (20.0-51.0); MEAN CELL VOLUME 92 fl (80.0-100.0); MEAN CORPUSCULAR HEMOGLOBIN 30 pg (27-31); MEAN CORPUSCULAR HGB CONC 33 g/dl (33.0-37.0); MEAN PLATELET VOLUME 8.8 fl (7.4-10.4); MONO # 0.9 K/mm3 (0.1-0.6); PLATELET COUNT 278 K/mm3 (130-400); RED BLOOD COUNT 4.24 M/mm3 (4.20-5.60); REDCELL DISTRIBUTION WIDTH-CV 14.3 % (11.5-14.5)
[2022-01-01 15:54] LABS: ALANINE AMINOTRANSFERASE 12 U/L (0-55); ALBUMIN 3.4 gm/dL (3.4-4.8); ALKALINE PHOSPHATASE 133 U/L (40-150); ANION GAP 14 mmol/L (7-16); AST,SGOT 17 U/L (5-34); BILIRUBIN,TOTAL 0.4 mg/dL (0.2-1.2); BLOOD UREA NITROGEN 10 mg/dL (8-26); CALCIUM 8.6 mg/dL (8.4-10.2); CARBON DIOXIDE 27 mmol/L (23-31); CHLORIDE 99 mmol/L (98-107); CREATININE, serum 1.24 mg/dL (0.72-1.25); GLUCOSE 111 mg/dL (70-99); POTASSIUM 3.3 mmol/L (3.5-4.5); SODIUM 140 mmol/L (136-145); TOTAL PROTEIN 8.3 gm/dL (6.2-8.1)
[2022-01-01 16:03] LABS: TROPONIN-I < 0.010 ng/mL (0.00-0.033)
[2022-01-01] MEDS ORDERED: LEVAQUIN 5500 MG/TA1 PO (17:43)
[2022-01-01 18:27] VITALS: BP 123/69; PULSE 63
== END 2022-01-01 18:40 | disposition home or self-care (01) ==
LOC: COL.ER 14:35
PROVIDERS: Personal Emergency Response Attendant
DX: J18.9 Pneumonia, unspecified organism (principal); E66.01 Morbid (severe) obesity due to excess calories; Z68.41 Body mass index [BMI] 40.0-44.9, adult; Z87.891 Personal history of nicotine dependence; Z79.899 Other long term (current) drug therapy
CPT/HCPCS: J1956; Q9967

== ENCOUNTER → 2022-02-03 | Outpatient (RCR) | payer MEDICARE, MEDICAID | END | disposition home or self-care (01) | LOC: WSOT | DX: G56.02 Carpal tunnel syndrome, left upper limb (principal) ==

== ENCOUNTER 2022-03-03 08:45 | Outpatient (RCR) | payer MEDICARE, MEDICAID | END 2022-03-06 | disposition home or self-care (01) | LOC: WSOT | DX: G56.02 Carpal tunnel syndrome, left upper limb (principal) ==

== ENCOUNTER 2022-03-10 08:45 | Outpatient (RCR) | payer MEDICARE, MEDICAID | END 2022-03-10 15:00 | disposition home or self-care (01) | LOC: WSOT 08:45 | DX: G56.02 Carpal tunnel syndrome, left upper limb (principal) ==

== ENCOUNTER 2022-11-03 05:42 | Day surgery (SDC) | payer MEDICARE, MEDICAID ==
[~2022-11-03] VITALS: Ht 182.9 cm; Wt 130.0 kg
[~2022-11-03 05:42] MED LIST changes: +CLEOCIN HC150 MG/CAP PO
[2022-11-03 06:58] VITALS: BP 110/66; PULSE 63; TEMP 97.8
[2022-11-03 07:34] VITALS: BP 105/55; PULSE 64; TEMP 97.2
[2022-11-03 07:49] VITALS: BP 114/60; PULSE 60
[2022-11-03 08:04] VITALS: BP 117/50; PULSE 60
[2022-11-03 08:19] VITALS: BP 110/50; PULSE 60
--- NOTE | 2022-11-03 09:21 | NUR ---
0734: PATIENT TO BAY 8 PER CART FROM OR. REPORT RECEIVED FROM OR NURSE AND WHITE SHOE RAGGER. VS OBTAINED. VS STABLE. BREATHING EVEN AND UNLABORED ON 8L NON-REBREATHER. PATIENT EASILY RESPONDS WHEN NAME CALLED. NO S/S OF PAIN OR DISCOMFORT. DRESSING TO LEFT FOOT C/D/I WITH POST OP SHOE IN PLACE. CALL LIGHT IN REACH 0749: VS REMAIN STABLE. BREATHING EVEN AND UNLABORED. SLEEPING BUT RESPONDS EASILY WHEN NAME CALLED. NO S/S OF PAIN OR DISCOMFORT AT THIS TIME. PATIENT REQUESTED MUFFIN AND DIET PEPSI AT THIS TIME. CALL LIGHT IN REACH. 0804: VS REMAIN STABLE. TOLERATING FOOD AND DRINK WELL. STATING PAIN IS 8/10 AT THIS TIME. RESTING IN COT. RAIL UP. CALL LIGHT IN REACH. 0814: 0814: PAIN MEDICATION GIVEN AT THIS TIME. SWALLOWED WITHOUT DIFFICULTIES. CALL LIGHT IN REACH. 0825: PATIENT URINATED 1,000ML OF CLEAR YELLOW URINE IN URINAL WITH ASSISTANCE. 0835: IV DC'D AT THIS TIME. 0840: DISCHARGE EDUCATION COMPLETED. PATIENT STATED UNDERSTANDING OF HOME AND FOLLOW UP CARE. DISCHARGE PAPERWORK GIVEN TO PATIENT. ASSISTED PATIENT WITH DRESSING AT THIS TIME. 0848: PATIENT OFF UNIT VIA WHEELCHAIR. PATIENT DISCHARGED HOME WITH FRIEND PER PERSONAL VEHICLE.
== END 2022-11-03 08:48 | disposition home or self-care (01) ==
LOC: SDCO 05:42
DX: M20.42 Other hammer toe(s) (acquired), left foot (principal); G47.33 Obstructive sleep apnea (adult) (pediatric); E11.42 Type 2 diabetes mellitus with diabetic polyneuropathy; E11.22 Type 2 diabetes mellitus with diabetic chronic kidney disease; I12.9 Hypertensive chronic kidney disease with stage 1 through stage 4 chronic kidney disease, or unspecified chronic kidney disease; N18.30 Chronic kidney disease, stage 3 unspecified; K21.9 Gastro-esophageal reflux disease without esophagitis; Z79.85 Long-term (current) use of injectable non-insulin antidiabetic drugs; Z95.5 Presence of coronary angioplasty implant and graft; Z95.0 Presence of cardiac pacemaker; Z79.899 Other long term (current) drug therapy
CPT/HCPCS: C1776; J0690; J2250; J2704; J2795

== ENCOUNTER 2022-11-12 13:50 | Emergency (ER) | payer MEDICARE, MEDICAID ==
[~2022-11-12] VITALS: Ht 182.9 cm; Wt 127.3 kg
[2022-11-12 14:12] LABS: BASO # 0.1 K/mm3 (0.0-0.2); BASO % 1.4 % (0.0-2.0); EOS # 0.4 K/mm3 (0.0-0.7); GRAN % 65.3 % (42.2-75.2); HEMATOCRIT 47.6 % (42.0-52.0); HEMOGLOBIN 15.6 g/dl (13.5-18.0); LYMPH # 1.7 K/mm3 (1.2-3.4); LYMPH % 21.7 % (20.0-51.0); MEAN CELL VOLUME 96 fl (80.0-100.0); MEAN CORPUSCULAR HEMOGLOBIN 32 pg (27-31); MEAN CORPUSCULAR HGB CONC 33 g/dl (33.0-37.0); MEAN PLATELET VOLUME 8.5 fl (7.4-10.4); MONO # 0.5 K/mm3 (0.1-0.6); MONO % 6.2 % (1.7-9.3); PLATELET COUNT 230 K/mm3 (130-400); RED BLOOD COUNT 4.95 M/mm3 (4.20-5.60); REDCELL DISTRIBUTION WIDTH-CV 14.5 % (11.5-14.5)
[2022-11-12 14:41] LABS: ALANINE AMINOTRANSFERASE 10 U/L (0-55); ALBUMIN 3.9 gm/dL (3.4-4.8); ALKALINE PHOSPHATASE 105 U/L (40-150); ANION GAP 10 mmol/L (7-16); AST,SGOT 16 U/L (5-34); BILIRUBIN,TOTAL 0.3 mg/dL (0.2-1.2); BLOOD UREA NITROGEN 7 mg/dL (8-26); CALCIUM 9.4 mg/dL (8.4-10.2); CARBON DIOXIDE 22 mmol/L (23-31); CHLORIDE 109 mmol/L (98-107); CREATININE, serum 1.04 mg/dL (0.72-1.25); GLUCOSE 91 mg/dL (70-99); POTASSIUM 3.7 mmol/L (3.5-4.5); SODIUM 141 mmol/L (136-145); TOTAL PROTEIN 8.1 gm/dL (6.2-8.1)
[2022-11-12 15:03] LABS: TROPONIN-I < 0.010 ng/mL (0.00-0.033)
[2022-11-12 16:30] VITALS: BP 126/69; PULSE 63; TEMP 97.5
== END 2022-11-12 17:00 | disposition home or self-care (01) ==
LOC: COL.ER 13:50
PROVIDERS: Nurse Practitioner
DX: S16.1XXA Strain of muscle, fascia and tendon at neck level, initial encounter (principal); S39.012A Strain of muscle, fascia and tendon of lower back, initial encounter; S60.212A Contusion of left wrist, initial encounter; R00.1 Bradycardia, unspecified; R41.82 Altered mental status, unspecified; M54.6 Pain in thoracic spine; R10.30 Lower abdominal pain, unspecified; J44.9 Chronic obstructive pulmonary disease, unspecified; Z99.81 Dependence on supplemental oxygen; Z88.5 Allergy status to narcotic agent; Z98.890 Other specified postprocedural states; V89.2XXA Person injured in unspecified motor-vehicle accident, traffic, initial encounter; W22.8XXA Striking against or struck by other objects, initial encounter; Y92.410 Unspecified street and highway as the place of occurrence of the external cause
CPT/HCPCS: J3010; Q9967

== ENCOUNTER 2024-04-29 00:10 | Emergency (ER) | payer MEDICARE, MEDICAID ==
[~2024-04-29] VITALS: Ht 175.3 cm; Wt 95.9 kg
[~2024-04-29 00:10] MED LIST changes: +JARDIANCE10 PO; +LYRICA 50MG CAP50 MG PO; +OZEMPIC0.25 MG/01 SQ; +PREDNISONE50 MG PO
[2024-04-29 00:15] VITALS: BP 131/69; TEMP 98.8
[2024-04-29] MEDS ORDERED: DOXYCYCLINE 10100 MG PO (00:43)
[2024-04-29 00:59] VITALS: PULSE 77
== END 2024-04-29 01:01 | disposition home or self-care (01) ==
LOC: COL.ER 00:10
DX: E11.621 Type 2 diabetes mellitus with foot ulcer (principal); L97.519 Non-pressure chronic ulcer of other part of right foot with unspecified severity; Z89.422 Acquired absence of other left toe(s); Z87.891 Personal history of nicotine dependence
CPT/HCPCS: A6248